=== PATIENT | male | born 1985 | race Caucasian/White ===

== ENCOUNTER 2018-04-15 13:00 | Emergency (ER) | payer OTHER, SELFPAY ==
[2018-04-15 13:09] VITALS: BP 139/92; PULSE 92; RESP 15; TEMP 37; O2SAT 97
--- NOTE | 2018-04-15 13:38 | ED.GENADUL ---
Disposition Clinical Impression: Viral pharyngitis Disposition: HOME Condition: Fair Instructions: Pharyngitis (ED) Additional Instructions: Encourage hydration. Tylenol and/or ibuprofen as needed for discomfort. Use Magic mouthwash as prescribed to help with discomfort. Please follow-up with primary care if symptoms persist. Please see care urgently once again if you develop new or worsening symptoms. Prescriptions: Mag&Al/Sim/Diphenhyd/Lidocaine [First-Mouthwash Blm Suspension] 5 ml MM Q6H PRN PRN #1 btl PRN Reason: Referrals: Nena Frank [Primary Care Provider] - Medical Decision Making - Lab Data POC Strep Test-KAYLIE(Rapid) Start: 04/15/18 13:13 Freq: .Rapid Strep Test Status: Active [place] 04/15/18 13:22 [facility] [place] 04/15/18 13:22 [facility] [place] [id number] Strep test-KAYLIE(Rapid)-POC POC-Strep test-KAYLIE (Rapid) Negative Results reviewed for labs ordered during visit: Yes - Medical Decision Making Patient presents today with chief complaint of sore throat. Patient is concerned that he may have strep throat. Rapid strep was performed by nursing staff noted to be negative. On exam, patient's reflux is noted to be erythematous. There is 2 small white areas. Patient status post tonsillectomy. Uvula is midline. No trismus. Patient appears nontoxic. He is afebrile. Vital signs are within normal limits. Advised that his symptoms are likely viral in nature. Encourage hydration. To help with his discomfort, prescribe first mouthwash. Advised to continue with Tylenol and/or ibuprofen. Encourage hydration. We discussed new/worsening symptoms when to seek care urgently once again. Advise follow-up with primary care in 1 week if symptoms have not improved. All his questions and concerns were addressed and he is in agreement this plan peer History of Present Illness - General Chief complaint: Sorethroat Stated complaint: SORE THROAT Time Seen by Provider: 04/15/18 13:21 Source: patient, RN notes reviewed Mode of arrival: ambulatory Limitations: no limitations - History of Present Illness Initial comments: Patient is a 32-year-old male presenting today with chief complaint of sore throat ?6 days. Patient denies any fevers or chills. He is endorsing some enlarged lymph nodes bilateral aspect of the anterior neck. He denies any difficulty breathing, no recent cough. Denies headache. Denies ear pain. Reports that he has had viral strep in the past. However, it has been several years since then. Patient is status post tonsillectomy. - Related Data Mag&Al/Sim/Diphenhyd/Lidocaine [First-Mouthwash Blm Suspension] 5 ml MM Q6H PRN PRN #1 btl 04/15/18 Allergies Allergy/AdvReac Type Severity Reaction Status Date / Time No Known Drug Allergies Allergy Unverified 12/22/17 09:12 Review of Systems Constitutional: no symptoms reported, see HPI Eyes: denies: eye pain ENT: as per HPI Respiratory: no symptoms reported, see HPI. denies: cough, shortness of breath Cardiovascular: denies: chest pain, palpitations Gastrointestinal: as per HPI. denies: abdominal pain, nausea, vomiting, diarrhea Skin: denies: rash, lesions Neurological: denies: headache General Exam - General Limitations: no limitations General appearance: alert, in no apparent distress - Head Head exam: Present: atraumatic - Eye Eye exam: Present: normal apperance - ENT ENT exam: Present: mucous membranes moist, TM's normal bilaterally, normal external ear exam. Absent: normal exam, normal orophraynx (Oropharynx is erythematous. There is 2 small spots of white exudate. She is noted to be status post tonsillectomy. Uvula is midline. No trismus.) - Neck Neck exam: Present: normal inspection. Absent: tenderness, lymphadenopathy - Respiratory Respiratory exam: Present: normal lung sounds bilaterally. Absent: respiratory distress - Cardiovascular Cardiovascular Exam: Present: regular rate, normal rhythm, normal heart sounds - Neurological Exam Neurological exam: Present: alert, normal gait - Psychiatric Psychiatric exam: Present: normal affect, normal mood - Skin Skin exam: Present: warm, dry, normal color Course Vital Signs - 24 hr 04/15/18 13:09 Temperature 37 C Pulse 92 H Respiratory 15 Rate Blood Pressure 139/92 Pulse Oximetry 97
== END 2018-04-15 13:51 | disposition home or self-care (01) ==
LOC: ER 04-16 10:14
PROVIDERS: Emergency Provider Student in an Organized Health Care Education/Training Program; PCP Nurse Practitioner
DX: J02.9 Acute pharyngitis, unspecified (principal)
CPT/HCPCS: 87880; 99283; 87081

== ENCOUNTER 2018-04-29 07:48 | Emergency (ER) | payer OTHER, SELFPAY ==
[2018-04-29 07:50] VITALS: BP 117/56; PULSE 98; RESP 16; TEMP 37.3; O2SAT 98
--- NOTE | 2018-04-29 08:05 | W.ED.GENAD ---
Discharge Plan Disposition Patient Disposition: HOME Condition: Improving Discharge Details Chief Complaint: RespSymp Clinical Impression: Upper respiratory infection Primary Care Provider: Nena Frank ED Provider: Darien Babcock Home Meds and New Rx's Prescriptions: New amoxicillin-pot clavulanate 875-125 mg tablet 1 tab PO BID 10 Days Qty: 20 RF: 0 Discontinued dyjmtkbtp-cwjmwmpzg-Rl-mag-sim 119 ML mouthwash 5 ml Mucous Membrane Q6H PRN PRNQty: 1 RF: 0 Discharge Instructions Instructions: Upper Respiratory Infection (ED) Additional Instructions: Home to rest today. May use Tylenol and/or ibuprofen as needed for fever or aches. Please take antibiotics as prescribed for 10 days. Small, frequent sips of fluids to maintain hydration. Return to the emergency department for worsening or any other acute concerns Discharge Data Discharge Date/Time-TO BE ENTERED AT DEPARTURE: 04/29/18 09:00 Medical Decision Making MDM Narrative Medical decision making narrative: Healthy 33-year-old male presents with fever, chills and cough over days time. He is otherwise well-appearing and in no acute distress. Differential diagnosis would include bronchitis, viral infection, pneumonia. Patient referred for chest x-ray which I reviewed and question early, developing infiltrate. Do feel he is high risk for developing pneumonia will place him on a course of Augmentin. Discussed return precautions as well as home management with the patient prior to discharge. Stable for home management at this time HPI - General Adult General Date/Time Provider Initiated Documentation: 04/29/18 08:05. Limitations to Documentation: no limitations. History of Present Illness 33 year old M presents to the emergency department with the chief complaint of Cough and fever, described as moderate, Quality is described as aching, and is localized to the chest. Patient reports no radiation. Patient started experiencing this day(s) and it has been constant. No relieving factors improve symptom(s), No exacerbating factors reported . Patient notes fever/chills. HPI Narrative: 33-year-old male with fever, cough, production of sputum over days time. It is in conjunction with upper respiratory illness and his girlfriend for which she is taking antibiotics. Minimal exacerbating or ameliorating factors. He is otherwise well. He has not had chest pain. No change to bowel or bladder habits. Related Data Previous Rx's Medication Instructions Recorded amoxicillin-pot clavulanate 1 tab PO BID 10 Days #20 tab 04/29/18 Allergies Allergy/AdvReac Type Severity Reaction Status Date / Time No Known Drug Allergies Allergy Unverified 04/29/18 07:59 General Stated Complaint: RespSymp ILDA: 3 Review of Systems Review of Systems 8 systems reviewed and otherwise negative PFSH Social History Smoking/Tobacco Use Status: Former Tobacco Use Surgical History Tonsillectomy and adenoidectomy Exam Narrative Exam Narrative: GEN: awake, alert, oriented 3. Pleasant, well groomed, interactive. HEAD: Normocephalic, atraumatic ENT: Mucous membranes moist, oropharynx unremarkable, External ear exam unremarkable EYES: PERRL, EOMI NECK: Full ROM, no SHAILESH, no menigismus CHEST/RESP: Nontender, right mid lung field with rhonchi. No significant wheeze appreciated. CARDIOVASCULAR: RRR, no murmur, rub dede. 2+ Rad pulse bilateral ABDOMEN: Soft, nontender, no mass. +Bowel sounds EXT: Full ROM, no edema, no rash Neuro: Grossly normal neurologic exam, conversant, interactive. Psych: Speech fluent, thoughts congruent, affect normal Course Vital Signs Temperature 37.3 C 04/29/18 07:50 Pulse 98 H 04/29/18 07:50 Respiratory Rate 16 04/29/18 07:50 Blood Pressure 117/56 L 04/29/18 07:50 Pulse Oximetry 98 04/29/18 07:50 Temperature 37.3 C 04/29/18 07:50 Pulse 98 H 04/29/18 07:50 Respiratory Rate 16 04/29/18 07:50 Blood Pressure 117/56 L 04/29/18 07:50 Pulse Oximetry 98 04/29/18 07:50
--- NOTE | 2018-04-29 08:08 | ED.GENADUL_ITS ---
Discharge Plan Disposition Patient Disposition: HOME Condition: Improving Discharge Details Chief Complaint: RespSymp Clinical Impression: Upper respiratory infection Primary Care Provider: Nena Frank ED Provider: Darien Babcock Home Meds and New Rx's Prescriptions: New amoxicillin-pot clavulanate 875-125 mg tablet 1 tab PO BID 10 Days Qty: 20 RF: 0 Discontinued cqkkvhqcr-oavyryewo-Er-mag-sim 119 ML mouthwash 5 ml Mucous Membrane Q6H PRN PRNQty: 1 RF: 0 Discharge Instructions Instructions: Upper Respiratory Infection (ED) Additional Instructions: Home to rest today. May use Tylenol and/or ibuprofen as needed for fever or aches. Please take antibiotics as prescribed for 10 days. Small, frequent sips of fluids to maintain hydration. Return to the emergency department for worsening or any other acute concerns Discharge Data Discharge Date/Time-TO BE ENTERED AT DEPARTURE: 04/29/18 09:00 Medical Decision Making MDM Narrative Medical decision making narrative: Healthy 33-year-old male presents with fever , chills and cough over days time. He is otherwise well-appearing and in no acute distress. Differential diagnosis would include bronchitis, viral infection, pneumonia. Patient referred for chest x-ray which I reviewed and question early, developing infiltrate. Do feel he is high risk for developing pneumonia will place him on a course of Augmentin. Discussed return precautions as well as home management with the patient prior to discharge. Stable for home management at this time HPI - General Adult General Date/Time Provider Initiated Documentation: 04/29/18 08:05 . Limitations to Documentation: no limitations . History of Present Illness 33 year old M presents to the emergency department with the chief complaint of Cough and fever, described as moderate, Quality is described as aching, and is localized to the chest. Patient reports no radiation. Patient started experiencing this day(s) and it has been constant. No relieving factors improve symptom(s), No exacerbating factors reported . Patient notes fever/chills. HPI Narrative: 33-year-old male with fever, cough, production of sputum over days time. It is in conjunction with upper respiratory illness and his girlfriend for which she is taking antibiotics. Minimal exacerbating or ameliorating factors. He is otherwise well. He has not had chest pain. No change to bowel or bladder habits. Related Data Previous Rx's Medication Instructions Recorded amoxicillin-pot clavulanate 1 tab PO BID 10 Days #20 tab 04/29/18 Allergies Allergy/AdvReac Type Severity Reaction Status Date / Time No Known Drug Allergies Allergy Unverified 04/29/18 07:59 General Stated Complaint: RespSymp ILDA: 3 Review of Systems Review of Systems 8 systems reviewed and otherwise negative PFSH Social History Smoking/Tobacco Use Status: Former Tobacco Use Surgical History Tonsillectomy and adenoidectomy Exam Narrative Exam Narrative: GEN: awake, alert, oriented 3. Pleasant, well groomed, interactive. HEAD: Normocephalic, atraumatic ENT: Mucous membranes moist, oropharynx unremarkable, External ear exam unremarkable EYES: PERRL, EOMI NECK: Full ROM, no SHAILESH, no menigismus CHEST/RESP: Nontender, right mid lung field with rhonchi. No significant wheeze appreciated. CARDIOVASCULAR: RRR, no murmur, rub dede. 2+ Rad pulse bilateral ABDOMEN: Soft, nontender, no mass. +Bowel sounds EXT: Full ROM, no edema, no rash Neuro: Grossly normal neurologic exam, conversant, interactive. Psych: Speech fluent, thoughts congruent, affect normal Course Vital Signs Temperature 37.3 C 04/29/18 07:50 Pulse 98 H 04/29/18 07:50 Respiratory Rate 16 04/29/18 07:50 Blood Pressure 117/56 L 04/29/18 07:50 Pulse Oximetry 98 04/29/18 07:50 Temperature 37.3 C 04/29/18 07:50 Pulse 98 H 04/29/18 07:50 Respiratory Rate 16 04/29/18 07:50 Blood Pressure 117/56 L 04/29/18 07:50 Pulse Oximetry 98 04/29/18 07:50
[2018-04-29 08:18] VITALS: TEMP 36.7
--- NOTE | 2018-04-29 08:19 | DI.RAD_ITS ---
SYMPTOM/DIAGNOSIS: COUGH, FEVER PA AND LATERAL CHEST: The lungs are not well inflated but appear clear. The heart size is normal. No infiltrate or effusion is seen. IMPRESSION: Negative chest xray.
[2018-04-29 09:00] VITALS: BP 110/67; PULSE 82; RESP 16; TEMP 36.7; O2SAT 99
--- NOTE | 2018-04-29 09:04 | DI.VRAD_ITS ---
EXAM: XR Chest, 2 Views CLINICAL HISTORY: 33 years old, male; Signs and symptoms; Cough and fever; Patient HX: Cough/fever TECHNIQUE: Frontal and lateral views of the chest. COMPARISON: No relevant prior studies available. FINDINGS: Lungs: Left infrahilar opacification. Pleural space: No discernible pleural effusion or pneumothorax. Heart: The cardiomediastinal silhouette appears within normal limits. Mediastinum: See above. Bones/joints: No acute osseous abnormality is seen. IMPRESSION: Suggestion of left infrahilar infiltrate, which may represent pneumonia in the appropriate clinical context. Dictated and Authenticated by: Caprice Stout MD. Ordering:BAILEY LAUREANO MD
== END 2018-04-29 09:00 | disposition home or self-care (01) ==
LOC: ER 09:04
PROVIDERS: Emergency Provider Emergency Medicine; PCP Nurse Practitioner
DX: J06.9 Acute upper respiratory infection, unspecified (principal)
CPT/HCPCS: 99284; 71046

== ENCOUNTER 2018-05-01 14:51 | Observation (INO) | payer OTHER, SELFPAY ==
[2018-05-01] VITALS (8 sets, daily range): BP systolic 106–161; BP diastolic 65–81; PULSE 107–128; RESP 1–30; TEMP 37.7–39.6; O2SAT 94–98
--- NOTE | 2018-05-01 15:56 | W.ED.GENAD ---
Discharge Plan Disposition Condition: Good Discharge Details Chief Complaint: SOB Reason For Visit: PNEUMONIA Admit Date/Time: 05/01/18 20:54 Admit Provider: Tomas Kathleen Attending Provider: Tomas Kathleen Primary Care Provider: Nena Frank ED Provider: Melinda Koch Discharge Instructions Activity:: Activity as Tolerated Equipment/Supplies:: No Equipment Needed Discharge Orders Discharge Orders: Discharge Order (Routine); Ordered 05/03/18 Ordered By: Brianna Rodriguez Discharge Data Discharge Date/Time-TO BE ENTERED AT DEPARTURE: 05/01/18 21:33 Medical Decision Making MDM Narrative Medical decision making narrative: Alexis Ordoñez is a 33-year-old man with history of sleep apnea presenting to the emergency department with worsening shortness of breath and cough after being started on Augmentin for pneumonia 2 days ago. On exam patient is tachypneic and not quite able to converse in full sentences secondary to shortness of breath. He is also tachycardic. Lungs are clear to auscultation. Concern for worsening pneumonia with possible reactive airway disease component, doubt PE. Patient is mildly tachypneic and tachycardic but appears well and nontoxic, doubt sepsis. Exam/history not consistent with ACS. Plan for EKG, chest x-ray, screening labs, DuoNeb, telemetry, IV fluid hydration. Will monitor and reassess. Pt reports feeling improved after duoneb and fluids, but continues to speak in short sentences. Plan for rpt duoneb and continued IVF hydration. CXR shows b/l PNA, will send blood cxs and treat with PO levaquin, possible d/c to home if improvement in SOB and tachycardia as overall low PNA severity index. Pt reassessed. Now tachycardic >125 despite 2L IVF. Significant time has passed since duoneb, doubt tachycardia 2/2 albuterol at this time. Pt continues to be SOB with minimal exertion. Plan for admission. Clinical Impression: PNA Disposition: [facility] inpatient Imaging Data Radiologic Study: Attestation: I personally reviewed and interpreted this imaging study as follows: Radiologist's impression: PE CHEST CT: CT angiography was performed with multi slice acquisition and multi planar and 3D reconstruction. CT scan of the chest was performed according to the pulmonary embolus protocol. Comparison chest xray is from the same day. The thoracic aorta is normal in caliber. No dissection or aneurysm is seen. No evidence of a pulmonary embolus is present. The heart is normal in size. No significant pericardial effusion is seen. No findings to suggest right ventricular dysfunction are present. Mildly enlarged lymph nodes are seen in the mediastinum which are likely reactive. No significant axillary adenopathy is present. No pleural effusion or pneumothorax is identified. There are air space opacities seen. The findings are most marked in the left lower lobe however infiltrates are noted in the left lingula, right upper lobe and right lower lobe. The tracheobronchial tree is unremarkable. The liver appears enlarged with diffuse decreased attenuation consistent with hepatic steatosis. Degenerative changes are seen in the spine. Note is made of bilateral gynecomastia. IMPRESSION: No evidence of a pulmonary embolus, thoracic aortic dissection or aneurysm. Bilateral pulmonary infiltrates consistent with a pneumonia. Hepatomegaly with hepatic steatosis. PA AND LATERAL CHEST: Comparison is made with 04/29/18. There is an infiltrate seen in the left lung base and developing infiltrates seen in the right upper lobe. These findings have progressed since 04/29/18. No gross effusions or pneumothoraces are identified. Heart size and pulmonary vasculature are within normal limits. Degenerative changes are seen in the spine. IMPRESSION: Worsening bilateral pulmonary infiltrates consistent with pneumonia. Lab Data Lab results reviewed: Yes I reviewed the patient's lab results. ECG Data Attestation: I personally reviewed and interpreted this ECG (s) as follows: Interpretation: EKG shows sinus tachycardia at 102 with normal axis, T-wave flattening V1 V2, no STEMI, nondiagnostic HPI - General Adult General Mode of arrival: ambulatory. Date/Time Provider Initiated Documentation: 05/01/18 15:55. Limitations to Documentation: no limitations. Information obtained by: patient, RN notes reviewed and old records reviewed. HPI Narrative: Alexis Ordoñez is a 33-year-old man with history of sleep apnea and no other medical problems presenting to the emergency department with cough and shortness of breath. Patient reports that he was seen on Wednesday for cough and mild shortness of breath. At that time he had a normal chest x-ray, but he was started on Augmentin for possible occult pneumonia. Patient reports that he has been taking his Augmentin as prescribed for the past 2 days, but feels that his shortness of breath and cough have been getting worse. He denies any pain. Denies fevers, vomiting, diarrhea, rash, lightheadedness, weakness. Patient reports that shortness of breath is worse with exertion. Has not had similar symptoms in the past. He denies travel in the past few months, denies other recent illnesses. He reports normal appetite. Related Data Home Medications Medication Instructions Recorded Confirmed ibuprofen 600 mg PO TID 05/01/18 05/01/18 albuterol sulfate 2 puff IH Q6H PRN #8 gm 05/03/18 guaifenesin [Mucinex] 600 mg PO BID #10 tab 05/03/18 levofloxacin 750 mg PO DAILY@1600 #5 tab 05/03/18 Previous Rx's Medication Instructions Recorded albuterol sulfate 2 puff IH Q6H PRN #8 gm 05/03/18 guaifenesin [Mucinex] 600 mg PO BID #10 tab 05/03/18 levofloxacin 750 mg PO DAILY@1600 #5 tab 05/03/18 Allergies Allergy/AdvReac Type Severity Reaction Status Date / Time No Known Drug Allergies Allergy Unverified 05/01/18 15:04 General Stated Complaint: SOB ILDA: 3 Review of Systems Review of Systems Constitutional: denies fevers Eyes: denies eye pain ENT: denies facial pain, dental pain, sore throat Cardiovascular: denies chest pain, edema Respiratory: reports SOB, cough GI: denies abdominal pain, vomiting, diarrhea : denies flank pain MSK: denies back pain, neck pain, arthralgias, myalgias Skin: denies rash Neuro: denies headaches, lightheadedness, weakness Exam Narrative Exam Narrative: Constitutional: well and and-[id number], pleasant HENT: head atraumatic, normocephalic normal inspection, mucous membranes moist Eyes: conjunctiva normal, sclera normal, pupils 3mm b/l Neck: no stridor, normal ROM, trachea midline Chest: normal inspection Resp: increased WOB, speaking in short sentences, b/l wheeze on ausculation without rales or rhonchi Cardio: tachycardia, normal rhythm, no murmur appreciated GI: abdomen soft, non-tender, non-distended Back: normal inspection, no rash Skin: warm, dry, normal color, no rash Neuro: alert, not altered, grossly non-focal, normal tone Ext: no edema Psych: normal mood, normal affect, normal behavior Course Vital Signs Temperature 37.7 C H 05/01/18 14:59 Pulse 111 H 05/01/18 14:59 Respiratory Rate 30 H 05/01/18 14:59 Pulse Oximetry 98 05/01/18 14:59 Temperature 37.7 C H 05/01/18 14:59 Pulse 108 H 05/01/18 15:26 Respiratory Rate 28 H 05/01/18 15:26 Blood Pressure 161/81 H 05/01/18 15:26 Pulse Oximetry 98 05/01/18 15:26
--- NOTE | 2018-05-01 16:02 | DI.COMBO_ITS ---
SYMPTOM/DIAGNOSIS: SOB, COUGH, PNEUMONIA, ? PE PE CHEST CT: CT angiography was performed with multi slice acquisition and multi planar and 3D reconstruction. CT scan of the chest was performed according to the pulmonary embolus protocol. Comparison chest xray is from the same day. The thoracic aorta is normal in caliber. No dissection or aneurysm is seen. No evidence of a pulmonary embolus is present. The heart is normal in size. No significant pericardial effusion is seen. No findings to suggest right ventricular dysfunction are present. Mildly enlarged lymph nodes are seen in the mediastinum which are likely reactive. No significant axillary adenopathy is present. No pleural effusion or pneumothorax is identified. There are air space opacities seen. The findings are most marked in the left lower lobe however infiltrates are noted in the left lingula, right upper lobe and right lower lobe. The tracheobronchial tree is unremarkable. The liver appears enlarged with diffuse decreased attenuation consistent with hepatic steatosis. Degenerative changes are seen in the spine. Note is made of bilateral gynecomastia. IMPRESSION: No evidence of a pulmonary embolus, thoracic aortic dissection or aneurysm. Bilateral pulmonary infiltrates consistent with a pneumonia. Hepatomegaly with hepatic steatosis. PA AND LATERAL CHEST: Comparison is made with 04/29/18. There is an infiltrate seen in the left lung base and developing infiltrates seen in the right upper lobe. These findings have progressed since 04/29/18. No gross effusions or pneumothoraces are identified. Heart size and pulmonary vasculature are within normal limits. Degenerative changes are seen in the spine. IMPRESSION: Worsening bilateral pulmonary infiltrates consistent with pneumonia.
[2018-05-01] MEDS: Albuterol/Ipratropium 3 ML UPD VIAL UPD ×2 (16:15→19:27)
[2018-05-01] MEDS: Normal Saline 1,000 ML 1000 ML IV ×2 (16:25→20:20)
[2018-05-01 16:32] LABS: Absolute Basophil Count 0.02 k/cumm (0.0-0.2); Absolute Eosinophil Count 0.26 k/cumm (0.0-0.7); Absolute Lymphocyte Count 1.15 k/cumm (1.2-3.4); Absolute Monocyte Count 0.74 k/cumm (0.11-0.7); Absolute Neutrophil Count 6.94 k/cumm (1.2-6.7); Basophils % 0.2; Eosinophils % 2.8; HCT 41.6 % (40.0-50.0); Immature Grans % 1.1; Lymphocytes % 12.5; Mean Corp. HGB Concentration 33.7 g/dL (32.0-36.0); Mean Corpuscular Hemoglobin 28.4 pg (27.0-33.0); Mean Corpuscular Volume 84.4 fL (80-95); Mean Platelet Volume 9.5 fL (8.0-11.0); Neutrophils % 75.4; Platelet Count 169 x1000/uL (130-400); RBC 4.93 m/cumm (4.50-6.00); RBC Distribution Width 14.7 % (11.8-14.1); White Blood Cell Count 9.21 k/cumm (4.4-10.8)
[2018-05-01 16:41] LABS: ALT 63 U/L (12-78); AST 30 U/L (15-37); Alkaline Phosphatase 64 U/L (46-116); Anion Gap 7.4 mmol/L (3-11); BUN 10 mg/dL (7-18); Bilirubin, Total 1.2 mg/dL (0.2-1.0); CO2 29.6 mmol/L (21.0-32.0); CREATININE 0.98 mg/dL (0.70-1.30); Calcium 8.4 mg/dL (8.5-10.1); Chloride 102 mmol/L (98-107); Glucose 112 mg/dL (70-100); Potassium 4.2 mmol/L (3.5-5.1); Sodium 139 mmol/L (136-145); Total Protein 7.5 g/dL (6.4-8.2)
[2018-05-01 17:02] LABS: D-Dimer 1721 ng/mlFEU (<500)
--- NOTE | 2018-05-01 17:26 | DI.VRAD_ITS ---
EXAM: XR Chest, 2 Views CLINICAL HISTORY: 33 years old, male; Signs and symptoms; Cough and shortness of breath; Patient HX: SOB, cough TECHNIQUE: Frontal and lateral views of the chest. COMPARISON: CR - XR CHEST 2V PA LATERAL 04/29/2018 8:12 AM FINDINGS: Lungs: New left lower lobe opacity with obscuration of the left posterior medial diaphragm consistent with left lower lobe pneumonia. Followup chest radiograph following appropriate medical management to confirm resolution is recommended. Pleural space: Unremarkable. No pneumothorax. Heart: Unremarkable. No cardiomegaly. Mediastinum: Unremarkable. Bones/joints: Unremarkable. IMPRESSION: Left lower lobe pneumonia. Followup chest radiograph to confirm resolution is recommended. Dictated and Authenticated by: Daniel Lim MD. Ordering:ANTONY GENTILE MD
[2018-05-01] MEDS: Omnipaque 350 MG/ML 100 ML BTL IJ (18:09)
--- NOTE | 2018-05-01 18:43 | DI.VRAD_ITS ---
EXAM: CT Angiography Chest With Intravenous Contrast EXAM DATE/TIME: 05/01/2018 5:38 PM CLINICAL HISTORY: 33 years old, male; Signs and symptoms; Shortness of breath; Patient HX: Sob/pna on xray worse on abx/ R/O pe TECHNIQUE: Axial computed tomographic angiography images of the chest with intravenous contrast using CT angiography protocol. All CT scans at this facility use at least one of these dose optimization techniques: automated exposure control; mA and/or kV adjustment per patient size (includes targeted exams where dose is matched to clinical indication); or iterative reconstruction. Coronal and sagittal reformatted images were created and reviewed. MIP reconstructed images were created and reviewed. CONTRAST: 100 ml of omni 350 administered intravenously. COMPARISON: CR - XR CHEST 2V PA LATERAL 05/01/2018 5:04 PM FINDINGS: Pulmonary arteries: Normal. No pulmonary emboli. Aorta: Normal. No aortic aneurysm. No aortic dissection. Lungs: Airspace opacity is identified in the central right upper lobe consistent with pneumonic consolidation. Additionally, as noted on chest radiograph evaluation performed earlier; there is pneumonic consolidation in the posterior left lower lobe as well which is much more extensive than that in the right upper lobe. Pleural space: Normal. No pneumothorax. No pleural effusion. Heart: Normal. No cardiomegaly. No pericardial effusion. Bones/joints: Marginal osteophytic spurring is present throughout the thoracic vertebrae. Soft tissues: There is mild bilateral gynecomastia noted. Lymph nodes: Unremarkable. No enlarged lymph nodes. Liver: There is hepatomegaly identified. The liver measured approximately 20.8 cm in the midclavicular line. There is associated marked diffuse hepatic steatosis present. IMPRESSION: 1. No identification of PE. 2. Dense posterior left lower lobe pneumonic consolidation and small right upper lobe pneumonic consolidation is identified. Dictated and Authenticated by: Alli Ag MD. Ordering:ANTONY GENTILE MD
[2018-05-01] MEDS: LEVOFLOXACIN 500 MG, LEVOFLOXACIN 250 MG 750 MG PO (20:19)
[2018-05-01 21:11] LABS: BE (Venous) 1.6 mmol/L (-3-3); HCO3 (Venous) 26 mmol/L (22-28); O2 Sat (Venous) 68 % (70-80); TCO2 (Venous) 24 mmol/L (22-29); pCO2 (Venous) 42 mm/Hg (34-47); pH (Venous) 7.41 (7.32-7.43); pO2 (Venous) 34 mm/Hg (28-44)
--- NOTE | 2018-05-01 21:32 | W.PM.HP.N ---
Date of service: 05/01/18 Time of Service: 21:32 Assessment and Plan (1) Pneumonia: Current visit: Yes Status: Acute Pneumonia diagnosed clinically and radiographically - evidence of multilobar pneumonia with consolidations in the LLL and RUL. Technically the patient has been on 2 days of oral Augmentin, with outpatient antibiotic failure. Will initiate on IV Levofloxacin, check Blood and Sputum Cultures, and monitor very closely with low threshold for broadening coverage if patient fails to improve. Continue IVFs, Tylenol for fever, nebulizer therapy and antitussive as needed. (2) DEVAN (obstructive sleep apnea): Current visit: Yes Status: Chronic Continue CPAP. (3) Obesity: Current visit: Yes Status: Chronic (4) DVT prophylaxis: Current visit: Yes Status: Acute SC Lovenox. History of Present Illness Chief Complaint: Fever, Cough Narrative: Very Pleasant 33 year old man with past medical history significant for Obesity and DEVAN, presents to [facility] emergency department with complaints of fever and cough. Mr. Ordoñez reports onset of fatigue approximately one week ago, followed by subjective fever, malaise, and dyspnea 5 days ago. He then had onset of a cough, described as unproductive, 2 days ago prompting a visit to the emergency room. His chest x-ray was negative, and the patient was started on Augmentin and discharged. Despite antibiotic use the patient continued to have worsening fever, dyspnea, cough, and onset of nausea and vomiting. Work-up in the emergency room was significant for appearance of LLL and RUL consolidations by CT. The patient's WBC was normal, as was his lactate and kidney function. His pulse ox was well within normal limits, and his blood pressure was normotensive. The patient was referred for admission due to ongoing sinus tachycardia despite fluid resuscitation. Review of Systems Review of Systems All systems reviewed & are unremarkable except as noted in HPI and below PFSH Family History Father Hepatocellular carcinoma RODRIGUEZ (nonalcoholic steatohepatitis) Liver transplant recipient Mother No problems noted. Sister Asthma Medical History Obesity (Chronic) DEVAN (obstructive sleep apnea) (Chronic) Social History Smoking/Tobacco Use Status: Former Tobacco Use additional social history: Patient is single, no children. 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 Remote and insignificant tobacco history. Rare alcohol use. Denies drugs. Surgical History Tonsillectomy and adenoidectomy Meds Home Medications Medication Instructions Recorded Confirmed Type ibuprofen 600 mg PO TID 05/01/18 05/01/18 History Allergies Allergy/AdvReac Type Severity Reaction Status Date / Time No Known Drug Allergies Allergy Unverified 05/01/18 15:04 Exam Const General: cooperative and ill appearing Nutritional Appearance: obese Orientation: alert, awake and oriented x3 Neck Neck: supple Resp Effort & Inspection: able to speak in complete sentences Auscultation: no crackles, diminished lung sounds (Slightly diminished in the LLL and RUL), no rales, no rhonchi and no wheezes Cardio Rate: tachycardic Heart Sounds: S1 normal, S2 normal, no gallops, no murmurs and no rubs GI Palpation: soft, not firm, no guarding and nontender Auscultation: normal bowel sounds Extrem General: normal to inspection and no edema Psych Appearance: grossly normal Mental Status: mental status grossly normal Affect: normal affect Attitude: cooperative Results Imaging Chest x-ray: report reviewed CT scan - chest: report reviewed Imaging Studies: Exam(s) PA AND LATERAL CHEST: The lungs are not well inflated but appear clear. The heart size is normal. No infiltrate or effusion is seen. IMPRESSION: Negative chest xray. EXAM: XR Chest, 2 Views COMPARISON: No relevant prior studies available. FINDINGS: Lungs: Left infrahilar opacification. Pleural space: No discernible pleural effusion or pneumothorax. Heart: The cardiomediastinal silhouette appears within normal limits. Mediastinum: See above. Bones/joints: No acute osseous abnormality is seen. IMPRESSION: Suggestion of left infrahilar infiltrate, which may represent pneumonia in the appropriate clinical context. Labs : 05/01/18 16:20 05/01/18 16:20 Laboratory Results - last 24 hr 05/01/18 05/01/18 05/01/18 16:20 16:20 16:20 WBC 9.21 RBC 4.93 Hgb 14.0 Hct 41.6 MCV 84.4 MCH 28.4 MCHC 33.7 RDW 14.7 H Plt Count 169 MPV 9.5 Immature Gran % 1.1 Neutrophils % 75.4 Lymphocytes % 12.5 Monocytes % 8.0 Eosinophils % 2.8 Basophils % 0.2 Absolute Neutrophils 6.94 H Absolute Lymphocytes 1.15 L Absolute Monocytes 0.74 H Absolute Eosinophils 0.26 Absolute Basophils 0.02 D-Dimer 1721 H VBG pH VBG pCO2 VBG pO2 VBG HCO3 VBG Total CO2 VBG O2 Saturation VBG Base Excess Sodium 139 Potassium 4.2 Chloride 102 Carbon Dioxide 29.6 Anion Gap 7.4 BUN 10 Creatinine 0.98 Estimated GFR/1.73 m2 >= 60.00 Glucose 112 H Lactate Calcium 8.4 L Total Bilirubin 1.2 H AST 30 ALT 63 Alkaline Phosphatase 64 Total Protein 7.5 Albumin 3.0 L 05/01/18 05/01/18 21:03 21:03 WBC RBC Hgb Hct MCV MCH MCHC RDW Plt Count MPV Immature Gran % Neutrophils % Lymphocytes % Monocytes % Eosinophils % Basophils % Absolute Neutrophils Absolute Lymphocytes Absolute Monocytes Absolute Eosinophils Absolute Basophils D-Dimer VBG pH 7.41 VBG pCO2 42 VBG pO2 34 VBG HCO3 26 VBG Total CO2 24 VBG O2 Saturation 68 L VBG Base Excess 1.6 Sodium Potassium Chloride Carbon Dioxide Anion Gap BUN Creatinine Estimated GFR/1.73 m2 Glucose Lactate 1.0 Calcium Total Bilirubin AST ALT Alkaline Phosphatase Total Protein Albumin
--- NOTE | 2018-05-01 21:35 | HPE_ITS ---
Date of service: 05/01/18 Time of Service: 21:32 Assessment and Plan (1) Pneumonia: Current visit: Yes Status: Acute Pneumonia diagnosed clinically and radiographically - evidence of multilobar pneumonia with consolidations in the LLL and RUL. Technically the patient has been on 2 days of oral Augmentin, with outpatient antibiotic failure. Will initiate on IV Levofloxacin, check Blood and Sputum Cultures, and monitor very closely with low threshold for broadening coverage if patient fails to improve. Continue IVFs, Tylenol for fever, nebulizer therapy and antitussive as needed. (2) DEVAN (obstructive sleep apnea): Current visit: Yes Status: Chronic Continue CPAP. (3) Obesity: Current visit: Yes Status: Chronic (4) DVT prophylaxis: Current visit: Yes Status: Acute SC Lovenox. History of Present Illness Chief Complaint: Fever, Cough Narrative: Very Pleasant 33 year old man with past medical history significant for Obesity and DEVAN, presents to [facility] emergency department with complaints of fever and cough. Mr. Ordoñez reports onset of fatigue approximately one week ago, followed by subjective fever, malaise, and dyspnea 5 days ago. He then had onset of a cough , described as unproductive, 2 days ago prompting a visit to the emergency room. His chest x-ray was negative, and the patient was started on Augmentin and discharged. Despite antibiotic use the patient continued to have worsening fever, dyspnea, cough, and onset of nausea and vomiting. Work-up in the emergency room was significant for appearance of LLL and RUL consolidations by CT. The patient's WBC was normal, as was his lactate and kidney function. His pulse ox was well within normal limits, and his blood pressure was normotensive. The patient was referred for admission due to ongoing sinus tachycardia despite fluid resuscitation. Review of Systems Review of Systems All systems reviewed & are unremarkable except as noted in HPI and below PFSH Family History Father Hepatocellular carcinoma RODRIGUEZ (nonalcoholic steatohepatitis) Liver transplant recipient Mother No problems noted. Sister Asthma Medical History Obesity (Chronic) DEVAN (obstructive sleep apnea) (Chronic) Social History Smoking/Tobacco Use Status: Former Tobacco Use additional social history: Patient is single, no children. 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 Remote and insignificant tobacco history. Rare alcohol use. Denies drugs. Surgical History Tonsillectomy and adenoidectomy Meds Home Medications Medication Instructions Recorded Confirmed Type ibuprofen 600 mg PO TID 05/01/18 05/01/18 History Allergies Allergy/AdvReac Type Severity Reaction Status Date / Time No Known Drug Allergies Allergy Unverified 05/01/18 15:04 Exam Const General: cooperative and ill appearing Nutritional Appearance: obese Orientation: alert, awake and oriented x3 Neck Neck: supple Resp Effort & Inspection: able to speak in complete sentences Auscultation: no crackles, diminished lung sounds (Slightly diminished in the LLL and RUL), no rales, no rhonchi and no wheezes Cardio Rate: tachycardic Heart Sounds: S1 normal, S2 normal, no gallops, no murmurs and no rubs GI Palpation: soft, not firm, no guarding and nontender Auscultation: normal bowel sounds Extrem General: normal to inspection and no edema Psych Appearance: grossly normal Mental Status: mental status grossly normal Affect: normal affect Attitude: cooperative Results Imaging Chest x-ray: report reviewed CT scan - chest: report reviewed Imaging Studies: Exam(s) PA AND LATERAL CHEST: The lungs are not well inflated but appear clear. The heart size is normal. No infiltrate or effusion is seen. IMPRESSION: Negative chest xray. EXAM: XR Chest, 2 Views COMPARISON: No relevant prior studies available. FINDINGS: Lungs: Left infrahilar opacification. Pleural space: No discernible pleural effusion or pneumothorax. Heart: The cardiomediastinal silhouette appears within normal limits. Mediastinum: See above. Bones/joints: No acute osseous abnormality is seen. IMPRESSION: Suggestion of left infrahilar infiltrate, which may represent pneumonia in the appropriate clinical context. Labs : 05/01/18 16:20 05/01/18 16:20 Laboratory Results - last 24 hr 05/01/18 05/01/18 05/01/18 16:20 16:20 16:20 WBC 9.21 RBC 4.93 Hgb 14.0 Hct 41.6 MCV 84.4 MCH 28.4 MCHC 33.7 RDW 14.7 H Plt Count 169 MPV 9.5 Immature Gran % 1.1 Neutrophils % 75.4 Lymphocytes % 12.5 Monocytes % 8.0 Eosinophils % 2.8 Basophils % 0.2 Absolute Neutrophils 6.94 H Absolute Lymphocytes 1.15 L Absolute Monocytes 0.74 H Absolute Eosinophils 0.26 Absolute Basophils 0.02 D-Dimer 1721 H VBG pH VBG pCO2 VBG pO2 VBG HCO3 VBG Total CO2 VBG O2 Saturation VBG Base Excess Sodium 139 Potassium 4.2 Chloride 102 Carbon Dioxide 29.6 Anion Gap 7.4 BUN 10 Creatinine 0.98 Estimated GFR/1.73 m2 >= 60.00 Glucose 112 H Lactate Calcium 8.4 L Total Bilirubin 1.2 H AST 30 ALT 63 Alkaline Phosphatase 64 Total Protein 7.5 Albumin 3.0 L 05/01/18 05/01/18 21:03 21:03 WBC RBC Hgb Hct MCV MCH MCHC RDW Plt Count MPV Immature Gran % Neutrophils % Lymphocytes % Monocytes % Eosinophils % Basophils % Absolute Neutrophils Absolute Lymphocytes Absolute Monocytes Absolute Eosinophils Absolute Basophils D-Dimer VBG pH 7.41 VBG pCO2 42 VBG pO2 34 VBG HCO3 26 VBG Total CO2 24 VBG O2 Saturation 68 L VBG Base Excess 1.6 Sodium Potassium Chloride Carbon Dioxide Anion Gap BUN Creatinine Estimated GFR/1.73 m2 Glucose Lactate 1.0 Calcium Total Bilirubin AST ALT Alkaline Phosphatase Total Protein Albumin
[2018-05-01] MEDS: Normal Saline Flush 10 ML SYR IVP (22:36)
[2018-05-01] MEDS: Normal Saline 1,000 ML 150 ML IV (22:36)
[2018-05-01] MEDS: Acetaminophen 325 MG TAB 650 MG PO (22:36)
[2018-05-02] VITALS (10 sets, daily range): BP systolic 118–139; BP diastolic 62–85; PULSE 90–109; RESP 20; TEMP 36.2–38.7; O2SAT 96–98
[2018-05-02] MEDS: Acetaminophen 325 MG TAB 650 MG PO (04:10)
[2018-05-02] MEDS: Normal Saline 1,000 ML 150 ML IV ×3 (04:16→19:02)
[2018-05-02 07:01] LABS: Abs Immature Grans 0.08 k/cumm (0.0-0.09); Absolute Basophil Count 0.03 k/cumm (0.0-0.2); Absolute Lymphocyte Count 1.26 k/cumm (1.2-3.4); Absolute Monocyte Count 0.83 k/cumm (0.11-0.7); Absolute Neutrophil Count 7.46 k/cumm (1.2-6.7); Basophils % 0.3; HGB 12.9 g/dL (13.5-17.5); Immature Grans % 0.8; Lymphocytes % 12.8; Mean Corp. HGB Concentration 33.1 g/dL (32.0-36.0); Mean Corpuscular Hemoglobin 28.4 pg (27.0-33.0); Mean Corpuscular Volume 85.7 fL (80-95); Mean Platelet Volume 9.6 fL (8.0-11.0); Monocytes % 8.4; Neutrophils % 75.7; Platelet Count 181 x1000/uL (130-400); RBC 4.55 m/cumm (4.50-6.00); RBC Distribution Width 14.9 % (11.8-14.1); White Blood Cell Count 9.86 k/cumm (4.4-10.8)
[2018-05-02 07:08] LABS: BUN 10 mg/dL (7-18); CREATININE 0.97 mg/dL (0.70-1.30); Calcium 8.1 mg/dL (8.5-10.1); Chloride 104 mmol/L (98-107); Glucose 96 mg/dL (70-100); Potassium 4.1 mmol/L (3.5-5.1); Sodium 139 mmol/L (136-145)
[2018-05-02] MEDS: Benzonatate 100 MG CAP PO ×3 (07:46→19:14)
[2018-05-02] MEDS: guaiFENesin 600 MG TABCR PO ×2 (07:46→19:13)
[2018-05-02] MEDS: Ibuprofen 600 MG TAB PO ×3 (07:46→19:13)
--- NOTE | 2018-05-02 07:51 | PDOC.CMIN ---
- If Service Date Differs Date of service: 05/02/18 Time of Service: 07:51 Care Management Initial Assess REASON FOR HOSPITALIZATION:: Pneumonia PAST MEDICAL HISTORY/PAST SURGICAL HISTORY:: Obesity, DEVAN, Tonsillectomy, Adenoidectomy PREVIOUS FUNCTIONAL STATUS/SOCIAL/FAMILY SUPPORTS:: Alexis resides alone in [place], he states that he has family locally whom are supportive. 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 Alexis is independent at baseline, he drives, and manages [employer]'s CURRENT FUNCTIONAL STATUS:: Currently Alexis is sitting up in his chair when this check writer visits. He just recently received Reiki. Alexis is pleasant and open to discussion this morning. ADVANCE DIRECTIVES:: None on file Has patient been provided with information about the portal?: Yes Did the patient sign up for the portal?: Yes CODE STATUS:: Full Code INSURANCE COVERAGE / FINANCIAL ISSUES:: [employer] CURRENT HOME/COMMUNITY SERVICES/EQUIPMENT:: Currently Alexis has no services in the community. He has a CPAP which is serviced through [facility] PRIMARY CARE PHYSICIAN:: Nena Frank POTENTIAL DISCHARGE NEEDS:: F/U appointment with PCP PATIENT/FAMILY EDUCATION NEEDS:: Review DC instructions, any limitations, and ongoing DC planning discussion. Review Ask Me Three ANTICIPATED BARRIERS TO DISCHARGE:: None identified at this time. TRANSPORTATION:: Alexis's vehicle is at [facility] - will transport self home. PLAN:: Alexis will return home with no anticipated services once medically cleared. He will F/U with PCP and plan of care as prescribed. Alexis will transport self home when ready.
--- NOTE | 2018-05-02 08:03 | INITIAL_ITS ---
- If Service Date Differs Date of service: 05/02/18 Time of Service: 07:51 Care Management Initial Assess REASON FOR HOSPITALIZATION:: Pneumonia PAST MEDICAL HISTORY/PAST SURGICAL HISTORY:: Obesity, DEVAN, Tonsillectomy, Adenoidectomy PREVIOUS FUNCTIONAL STATUS/SOCIAL/FAMILY SUPPORTS:: Alexis resides alone in [place], he states that he has family locally whom are supportive. 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 He just recently received Reiki. Alexis is pleasant and open to discussion this morning. ADVANCE DIRECTIVES:: None on file Has patient been provided with information about the portal?: Yes Did the patient sign up for the portal?: Yes CODE STATUS:: Full Code INSURANCE COVERAGE / FINANCIAL ISSUES:: [employer] CURRENT HOME/COMMUNITY SERVICES/EQUIPMENT:: Currently Alexis has no services in the community. He has a CPAP which is serviced through [facility] PRIMARY CARE PHYSICIAN:: Nena Frank POTENTIAL DISCHARGE NEEDS:: F/U appointment with PCP PATIENT/FAMILY EDUCATION NEEDS:: Review DC instructions, any limitations, and ongoing DC planning discussion. Review Ask Me Three ANTICIPATED BARRIERS TO DISCHARGE:: None identified at this time. TRANSPORTATION:: Alexis's vehicle is at [facility] - will transport self home. PLAN:: Alexis will return home with no anticipated services once medically cleared. He will F/U with PCP and plan of care as prescribed. Alexis will transport self home when ready.
--- NOTE | 2018-05-02 08:31 | ED.GENADUL_ITS ---
Discharge Plan Disposition Condition: Good Discharge Details Chief Complaint: SOB Reason For Visit: PNEUMONIA Admit Date/Time: 05/01/18 20:54 Admit Provider: Tomas Kathleen Attending Provider: Tomas Kathleen Primary Care Provider: Nena Frank ED Provider: Melinda Koch Discharge Instructions Activity:: Activity as Tolerated Equipment/Supplies:: No Equipment Needed Discharge Orders Discharge Orders: Discharge Order (Routine); Ordered 05/03/18 Ordered By: Brianna Rodriguez Discharge Data Discharge Date/Time-TO BE ENTERED AT DEPARTURE: 05/01/18 21:33 Medical Decision Making MDM Narrative Medical decision making narrative: Alexis Ordoñez is a 33-year-old man with history of sleep apnea presenting to the emergency department with worsening shortness of breath and cough after being started on Augmentin for pneumonia 2 days ago. On exam patient is tachypneic and not quite able to converse in full sentences secondary to shortness of breath. He is also tachycardic. Lungs are clear to auscultation. Concern for worsening pneumonia with possible reactive airway disease component, doubt PE. Patient is mildly tachypneic and tachycardic but appears well and nontoxic, doubt sepsis. Exam/history not consistent with ACS. Plan for EKG, chest x-ray, screening labs, DuoNeb, telemetry, IV fluid hydration. Will monitor and reassess. Pt reports feeling improved after duoneb and fluids, but continues to speak in short sentences. Plan for rpt duoneb and continued IVF hydration. CXR shows b/l PNA, will send blood cxs and treat with PO levaquin, possible d/c to home if improvement in SOB and tachycardia as overall low PNA severity index. Pt reassessed. Now tachycardic >125 despite 2L IVF. Significant time has passed since duoneb, doubt tachycardia 2/2 albuterol at this time. Pt continues to be SOB with minimal exertion. Plan for admission. Clinical Impression: PNA Disposition: [facility] inpatient Imaging Data Radiologic Study: Attestation: I personally reviewed and interpreted this imaging study as follows: Radiologist's impression: PE CHEST CT: CT angiography was performed with multi slice acquisition and multi planar and 3D reconstruction. CT scan of the chest was performed according to the pulmonary embolus protocol. Comparison chest xray is from the same day. The thoracic aorta is normal in caliber. No dissection or aneurysm is seen. No evidence of a pulmonary embolus is present. The heart is normal in size. No significant pericardial effusion is seen. No findings to suggest right ventricular dysfunction are present. Mildly enlarged lymph nodes are seen in the mediastinum which are likely reactive. No significant axillary adenopathy is present. No pleural effusion or pneumothorax is identified. There are air space opacities seen. The findings are most marked in the left lower lobe however infiltrates are noted in the left lingula, right upper lobe and right lower lobe. The tracheobronchial tree is unremarkable. The liver appears enlarged with diffuse decreased attenuation consistent with hepatic steatosis. Degenerative changes are seen in the spine. Note is made of bilateral gynecomastia. IMPRESSION: No evidence of a pulmonary embolus, thoracic aortic dissection or aneurysm. Bilateral pulmonary infiltrates consistent with a pneumonia. Hepatomegaly with hepatic steatosis. PA AND LATERAL CHEST: Comparison is made with 04/29/18. There is an infiltrate seen in the left lung base and developing infiltrates seen in the right upper lobe. These findings have progressed since 04/29/18. No gross effusions or pneumothoraces are identified. Heart size and pulmonary vasculature are within normal limits. Degenerative changes are seen in the spine. IMPRESSION: Worsening bilateral pulmonary infiltrates consistent with pneumonia. Lab Data Lab results reviewed: Yes I reviewed the patient's lab results. ECG Data Attestation: I personally reviewed and interpreted this ECG (s) as follows: Interpretation: EKG shows sinus tachycardia at 102 with normal axis, T-wave flattening V1 V2, no STEMI, nondiagnostic HPI - General Adult General Mode of arrival: ambulatory . Date/Time Provider Initiated Documentation: 05/01/18 15:55 . Limitations to Documentation: no limitations . Information obtained by: patient, RN notes reviewed and old records reviewed . HPI Narrative: Alexis Ordoñez is a 33-year-old man with history of sleep apnea and no other medical problems presenting to the emergency department with cough and shortness of breath. Patient reports that he was seen on Wednesday for cough and mild shortness of breath. At that time he had a normal chest x-ray, but he was started on Augmentin for possible occult pneumonia. Patient reports that he has been taking his Augmentin as prescribed for the past 2 days, but feels that his shortness of breath and cough have been getting worse. He denies any pain. Denies fevers, vomiting, diarrhea, rash, lightheadedness, weakness. Patient reports that shortness of breath is worse with exertion. Has not had similar symptoms in the past. He denies travel in the past few months, denies other recent illnesses. He reports normal appetite. Related Data Home Medications Medication Instructions Recorded Confirmed ibuprofen 600 mg PO TID 05/01/18 05/01/18 albuterol sulfate 2 puff IH Q6H PRN #8 gm 05/03/18 guaifenesin [Mucinex] 600 mg PO BID #10 tab 05/03/18 levofloxacin 750 mg PO DAILY@1600 #5 tab 05/03/18 Previous Rx's Medication Instructions Recorded albuterol sulfate 2 puff IH Q6H PRN #8 gm 05/03/18 guaifenesin [Mucinex] 600 mg PO BID #10 tab 05/03/18 levofloxacin 750 mg PO DAILY@1600 #5 tab 05/03/18 Allergies Allergy/AdvReac Type Severity Reaction Status Date / Time No Known Drug Allergies Allergy Unverified 05/01/18 15:04 General Stated Complaint: SOB ILDA: 3 Review of Systems Review of Systems Constitutional: denies fevers Eyes: denies eye pain ENT: denies facial pain, dental pain, sore throat Cardiovascular: denies chest pain, edema Respiratory: reports SOB, cough GI: denies abdominal pain, vomiting, diarrhea : denies flank pain MSK: denies back pain, neck pain, arthralgias, myalgias Skin: denies rash Neuro: denies headaches, lightheadedness, weakness Exam Narrative Exam Narrative: Constitutional: well and [id number], pleasant HENT: head atraumatic, normocephalic normal inspection, mucous membranes moist Eyes: conjunctiva normal, sclera normal, pupils 3mm b/l Neck: no stridor, normal ROM, trachea midline Chest: normal inspection Resp: increased WOB, speaking in short sentences, b/l wheeze on ausculation without rales or rhonchi Cardio: tachycardia, normal rhythm, no murmur appreciated GI: abdomen soft, non-tender, non-distended Back: normal inspection, no rash Skin: warm, dry, normal color, no rash Neuro: alert, not altered, grossly non-focal, normal tone Ext: no edema Psych: normal mood, normal affect, normal behavior Course Vital Signs Temperature 37.7 C H 05/01/18 14:59 Pulse 111 H 05/01/18 14:59 Respiratory Rate 30 H 05/01/18 14:59 Pulse Oximetry 98 05/01/18 14:59 Temperature 37.7 C H 05/01/18 14:59 Pulse 108 H 05/01/18 15:26 Respiratory Rate 28 H 05/01/18 15:26 Blood Pressure 161/81 H 05/01/18 15:26 Pulse Oximetry 98 05/01/18 15:26
--- NOTE | 2018-05-02 12:59 | W.PM.PROGNOT ---
Date of service: 05/02/18 Time of Service: 12:59 Assessment and Plan (1) Pneumonia: Current visit: Yes Status: Acute Left lower lobe and right upper lobe according to chest x-ray on admission. No leukocytosis, has had intermittent fevers. Blood cultures currently pending. Was scheduled to start IV Levaquin this evening, however seems to have responded well to p.o. Levaquin and we will plan to continue this. Repeat CBC with differential and metabolic panel in the morning. As long as these are stable and blood cultures remain negative will plan to discharge home tomorrow. Treat fever with Tylenol and continue with neb nebulizer therapy and antitussive as needed. (2) DEVAN (obstructive sleep apnea): Current visit: Yes Status: Chronic Continue CPAP. (3) Obesity: Current visit: Yes Status: Chronic (4) DVT prophylaxis: Current visit: Yes Status: Acute SC Lovenox. Subjective Patient reports: no new complaints, feels better and tolerating a regular diet Interval history since last seen: Alexis is a pleasant 33-year-old gentleman with obesity, DEVAN on CPAP who presented to the emergency department yesterday with complaints of fever and cough as well as some pleuritic chest discomfort. Workup in the emergency room was significant for left lower lobe and right upper lobe consolidations on CT. He did have an elevated d-dimer, however no evidence of PE. WBCs and lactate normal. Was given p.o. Levaquin in the emergency department and admitted to the hospitalist service for further management. This morning he is sitting up in the recliner watching television. Reports feeling significantly improved compared to last night. He is no longer short of breath and is having less pleuritic chest discomfort. Is tolerating p.o. intake. Exam Narrative Exam Narrative: General: 33yo male, obese. Well developed and well nourished. No acute distress. A/Ox3. Pleasant and cooperative. HEENT: Normocephalic, Atraumatic. Conjunctiva clear, sclera non-icteric. PERRL. EOMI. Moist mucous membranes, oropharynx clear. Neck supple, no JVD, thyromegaly or lymphadenopathy. Cardiovascular: Regular rate and rhythm, S1S2, no S3 or S4. No murmur, rub, gallop. Respiratory: Chest expansion symmetrical, respirations unlabored. Lungs clear to auscultation, no adventitious breath sounds. Lung sounds somewhat diminished bilateral lower lobes GI: Abdomen round, soft, non-tender to palpation. Normoactive bowel sounds in all 4 quadrants. No hepatosplenomegaly or prominent masses. : deferred Extremities: Lower extremities without deformity or edema Neurological: non-focal. CN 2-12 grossly intact. Psychiatric: pleasant and cooperative. Speech clear and articulate. Mood and affect normal. Objective Objective Clinical Data: Abnormal lab results 05/01/18 05/01/18 05/01/18 Range/Units 16:20 16:20 16:20 Hgb (13.5-17.5) g/dL Hct (40.0-50.0) % RDW 14.7 H (11.8-14.1) % Absolute Neutrophils 6.94 H (1.2-6.7) k/cumm Absolute Lymphocytes 1.15 L (1.2-3.4) k/cumm Absolute Monocytes 0.74 H (0.11-0.7) k/cumm D-Dimer 1721 H (<500) ng/mlFEU VBG O2 Saturation (70-80) % Glucose 112 H (70-100) mg/dL Calcium 8.4 L (8.5-10.1) mg/dL Total Bilirubin 1.2 H (0.2-1.0) mg/dL Albumin 3.0 L (3.4-5.0) g/dL 05/01/18 05/02/18 05/02/18 Range/Units 21:03 06:20 06:20 Hgb 12.9 L (13.5-17.5) g/dL Hct 39.0 L (40.0-50.0) % RDW 14.9 H (11.8-14.1) % Absolute Neutrophils 7.46 H (1.2-6.7) k/cumm Absolute Lymphocytes (1.2-3.4) k/cumm Absolute Monocytes 0.83 H (0.11-0.7) k/cumm D-Dimer (<500) ng/mlFEU VBG O2 Saturation 68 L (70-80) % Glucose (70-100) mg/dL Calcium 8.1 L (8.5-10.1) mg/dL Total Bilirubin (0.2-1.0) mg/dL Albumin (3.4-5.0) g/dL Vital Signs Temp 38 C H 05/02/18 09:29 Pulse 98 H 05/02/18 09:29 Resp 20 05/02/18 09:29 BP 120/62 18 09:29 Pulse Ox 96 05/02/18 09:29 Intake & Output 05/01/18 05/02/18 05/02/18 23:59 11:59 23:59 Intake Total 1500 / 1500 3590 / 3590 Output Total 3500 / 3500 Balance 1500 / 1500 90 / 90 Intake: IV 1000 / 1000 1850 / 1850 Oral 500 / 500 1740 / 1740 Output: Urine 3500 / 3500 Other: Urine Color Yellow Urine Appearance Clear Voiding Methods Urinal Laboratory Results WBC 9.86 k/cumm (4.4-10.8) 05/02/18 06:20 RBC 4.55 m/cumm (4.50-6.00) 05/02/18 06:20 Hgb 12.9 g/dL (13.5-17.5) L 05/02/18 06:20 Hct 39.0 % (40.0-50.0) L 05/02/18 06:20 MCV 85.7 fL (80-95) 05/02/18 06:20 MCH 28.4 pg (27.0-33.0) 05/02/18 06:20 MCHC 33.1 g/dL (32.0-36.0) 05/02/18 06:20 RDW 14.9 % (11.8-14.1) H 05/02/18 06:20 Plt Count 181 x1000/uL (130-400) 05/02/18 06:20 MPV 9.6 fL (8.0-11.0) 05/02/18 06:20 Immature Gran % 0.8 05/02/18 06:20 Neutrophils % 75.7 05/02/18 06:20 Lymphocytes % 12.8 05/02/18 06:20 Monocytes % 8.4 05/02/18 06:20 Eosinophils % 2.0 05/02/18 06:20 Basophils % 0.3 05/02/18 06:20 Absolute Neutrophils 7.46 k/cumm (1.2-6.7) H 05/02/18 06:20 Absolute Lymphocytes 1.26 k/cumm (1.2-3.4) 05/02/18 06:20 Absolute Monocytes 0.83 k/cumm (0.11-0.7) H 05/02/18 06:20 Absolute Eosinophils 0.20 k/cumm (0.0-0.7) 05/02/18 06:20 Absolute Basophils 0.03 k/cumm (0.0-0.2) 05/02/18 06:20 D-Dimer 1721 ng/mlFEU (<500) H 05/01/18 16:20 VBG pH 7.41 (7.32-7.43) 05/01/18 21:03 VBG pCO2 42 mm/Hg (34-47) 05/01/18 21:03 VBG pO2 34 mm/Hg (28-44) 05/01/18 21:03 VBG HCO3 26 mmol/L (22-28) 05/01/18 21:03 VBG Total CO2 24 mmol/L (22-29) 05/01/18 21:03 VBG O2 Saturation 68 % (70-80) L 05/01/18 21:03 VBG Base Excess 1.6 mmol/L (-3-3) 05/01/18 21:03 Sodium 139 mmol/L (136-145) 05/02/18 06:20 Potassium 4.1 mmol/L (3.5-5.1) 05/02/18 06:20 Chloride 104 mmol/L (98-107) 05/02/18 06:20 Carbon Dioxide 27.0 mmol/L (21.0-32.0) 05/02/18 06:20 Anion Gap 8.0 mmol/L (3-11) 05/02/18 06:20 BUN 10 mg/dL (7-18) 05/02/18 06:20 Creatinine 0.97 mg/dL (0.70-1.30) 05/02/18 06:20 Estimated GFR/1.73 m2 >= 60.00 (mL/min/1.73m2) 05/02/18 06:20 Glucose 96 mg/dL (70-100) 05/02/18 06:20 Lactate 1.0 mmol/L (0.6-1.4) 05/01/18 21:03 Calcium 8.1 mg/dL (8.5-10.1) L 05/02/18 06:20 Total Bilirubin 1.2 mg/dL (0.2-1.0) H 05/01/18 16:20 AST 30 U/L (15-37) 05/01/18 16:20 ALT 63 U/L (12-78) 05/01/18 16:20 Alkaline Phosphatase 64 U/L (46-116) 05/01/18 16:20 Total Protein 7.5 g/dL (6.4-8.2) 05/01/18 16:20 Albumin 3.0 g/dL (3.4-5.0) L 05/01/18 16:20
--- NOTE | 2018-05-02 15:21 | CHAPLAIN ---
Alexis was up walking around his room when I stopped in. He was pleasant, but not interested in further conversation.
[2018-05-02] MEDS: LEVOFLOXACIN 500 MG, LEVOFLOXACIN 250 MG 750 MG PO (17:36)
[2018-05-02] MEDS: Enoxaparin 40 MG/0.4 ML SYR SC (21:28)
[2018-05-03 07:15] LABS: Abs Immature Grans 0.12 k/cumm (0.0-0.09); Absolute Basophil Count 0.03 k/cumm (0.0-0.2); Absolute Eosinophil Count 0.61 k/cumm (0.0-0.7); Absolute Lymphocyte Count 1.46 k/cumm (1.2-3.4); Absolute Monocyte Count 0.75 k/cumm (0.11-0.7); Absolute Neutrophil Count 5.23 k/cumm (1.2-6.7); Basophils % 0.4; Eosinophils % 7.4; HCT 39.3 % (40.0-50.0); HGB 12.9 g/dL (13.5-17.5); Immature Grans % 1.5; Lymphocytes % 17.8; Mean Corp. HGB Concentration 32.8 g/dL (32.0-36.0); Mean Corpuscular Hemoglobin 28.1 pg (27.0-33.0); Mean Corpuscular Volume 85.6 fL (80-95); Mean Platelet Volume 9.4 fL (8.0-11.0); Monocytes % 9.1; Neutrophils % 63.8; Platelet Count 183 x1000/uL (130-400); RBC 4.59 m/cumm (4.50-6.00); RBC Distribution Width 14.9 % (11.8-14.1)
[2018-05-03 07:16] VITALS: BP 122/79; PULSE 77; RESP 17; TEMP 37; O2SAT 97
[2018-05-03 07:20] LABS: Anion Gap 8.4 mmol/L (3-11); BUN 14 mg/dL (7-18); CO2 28.6 mmol/L (21.0-32.0); CREATININE 0.91 mg/dL (0.70-1.30); Calcium 8.5 mg/dL (8.5-10.1); Chloride 104 mmol/L (98-107); Glucose 87 mg/dL (70-100); Potassium 4.4 mmol/L (3.5-5.1); Sodium 141 mmol/L (136-145)
[2018-05-03 07:59] VITALS: TEMP 37
[2018-05-03] MEDS: Ibuprofen 600 MG TAB PO (07:59)
[2018-05-03] MEDS: Benzonatate 100 MG CAP PO (07:59)
[2018-05-03] MEDS: guaiFENesin 600 MG TABCR PO (08:00)
--- NOTE | 2018-05-03 10:00 | PDOC.CMDIS ---
- If Service Date Differs Date of service: 05/03/18 Time of Service: 10:01 LACE Index Scoring Tool - Questions: Length of Stay (in days): 3 Acuity (Admit via E.D.?): Yes E.D. Visits: 3 - Answers: Total Score: 9 Risk of Readmission: Low Risk Care Management Discharge Reason for Hospitalization: Pneumonia Discharge Plan: Alexis will return home with no services. He will F/U with PCP and plan of care as prescribed. Alexis's family will transport. Patient/Family Education Needs: Review DC instructions, any limitations, and discuss Ask Me Three
--- NOTE | 2018-05-03 11:35 | DSE_ITS ---
Date of service: 05/03/18 Time of Service: 11:33 DS: Diagnosis Discharge Diagnosis (1) Pneumonia: Status: Acute (2) DEVAN (obstructive sleep apnea): Status: Chronic (3) Obesity: Status: Chronic (4) DVT prophylaxis: Status: Acute Discharge Plan Disposition Patient Disposition: HOME Condition: Good Discharge Details Chief Complaint: SOB Reason For Visit: PNEUMONIA Admit Date/Time: 05/01/18 20:54 Admit Provider: Tomas Kathleen Attending Provider: Tomas Kathleen Primary Care Provider: Nena Frank ED [facility] Hospital Course: Alexis is a Very Pleasant 33 year old man with past medical history significant for Obesity and DEVAN, who presented to [facility] emergency department on 05/01/18 with complaints of fever and cough. Mr. Ordoñez reported onset of fatigue approximately one week prior to his presentation, followed by subjective fever, malaise, and dyspnea. He then had onset of a cough, described as unproductive, 2 days prior to this admission, which prompted a visit to the emergency room. His chest x-ray was negative at that time, and the patient was started on Augmentin and discharged. Despite antibiotic use the patient continued to have worsening fever, dyspnea, cough, and onset of nausea and vomiting. He presented again to the ED and was admitted at that time. Work-up in the emergency room was significant for appearance of LLL and RUL consolidations by CT. The patient's WBC was normal, as was his lactate and kidney function. His pulse ox was well within normal limits, and his blood pressure was normotensive. The patient was referred for admission due to ongoing sinus tachycardia despite fluid resuscitation. Over the following days his symptoms improved. By the day of discharge he is no longer short of breath, he denies wheezing (although he continues to have expiratory wheezing on auscultation), he is eating and drinking and tolerating his diet well. He is eager for discharge home. He will be discharged home and will need to continue a course of oral antibiotics. Given that he continues to wheeze, will provide him with a prescription for albuterol inhaler to be used as needed. On the day of discharge, he is afebrile, normotensive, he is no longer tachycardic, his oxygen saturation is 97% on room air. He has no leukocytosis, kidney funciton is normal, his blood cultures have yielded no growth in 24 hours. He will follow up with his PCP as scheduled. Home Meds and New Rx's Prescriptions: New guaifenesin [Mucinex] 600 mg Tablet Extended Release 12hr 600 mg PO BID Qty: 10 RF: 0 levofloxacin 750 mg tablet 750 mg PO DAILY@1600 Qty: 5 RF: 0 albuterol sulfate 90 mcg/actuation HFA aerosol inhaler 2 puff IH Q6H PRN (Reason: wheezing) Qty: 8 RF: 0 Continue ibuprofen 600 mg Tablet 600 mg PO TID RF: 0 Discontinued amoxicillin-pot clavulanate 875-125 mg tablet 1 tab PO BID 10 Days Qty: 20 RF: 0 Discharge Instructions Instructions: Community Acquired Pneumonia (DC) Additional Instructions: Take your antibiotics until they are gone (Levaquin). You may use albuterol inhaler for wheezing or shortness of breath, only use as needed. Follow up with your PCP as scheduled. ~This case was discussed with Dr. Kilpatrick who is in agreement~ Stand Alone Forms: Nursing Discharge Form Referrals: Nena Frank [Primary Care Provider] - 05/19/18 9:25 am Activity:: Activity as Tolerated Equipment/Supplies:: No Equipment Needed Diet:: As tolerated. Discharge Orders Discharge Orders: Discharge Order (Routine); Ordered 05/03/18 Ordered By: Brianna Rodriguez DS: Data Vitals/I&O Vitals and I&O: Vital Signs Temp 37.0 C 05/03/18 07:59 Pulse 77 05/03/18 07:16 Resp 17 05/03/18 07:16 BP 122/79 05/03/18 07:16 Pulse Ox 97 05/03/18 07:16 Intake & Output 05/02/18 05/02/18 05/03/18 11:59 23:59 11:59 Intake Total 4190 / 4190 2342.0 / 2342.0 1040 / 1040 Output Total 3500 / 3500 5000 / 5000 3150 / 3150 Balance 690 / 690 -2658.0 / -2658.0 -2110 / -2110 Weight 71.214 kg Intake: IV 1850 / 1850 1612.0 / 1612.0 Oral 2340 / 2340 730 / 730 1040 / 1040 Output: Urine 3500 / 3500 5000 / 5000 3150 / 3150 Other: Urine Color Yellow Yellow Pale Urine Appearance Clear Clear Clear Urine Odor None Comment pt voided x 2. 750 each time. Voiding Methods Urinal Toilet Toilet Urinal Completed studies during hospitalization [Text1]: CHEST CT 05/02/18: IMPRESSION: No evidence of a pulmonary embolus, thoracic aortic dissection or aneurysm. Bilateral pulmonary infiltrates consistent with a pneumonia. Hepatomegaly with hepatic steatosis. Chest X-Ray 05/02/18: IMPRESSION: Worsening bilateral pulmonary infiltrates consistent with pneumonia. SPUTUM culture 05/02/18: Normal ama BLOOD cultures 05/01/18: NO GROWTH 24 HOURS Labs on day of discharge: Labs from last 24 hours 05/03/18 05/03/18 06:54 06:54 WBC 8.20 RBC 4.59 Hgb 12.9 L Hct 39.3 L MCV 85.6 MCH 28.1 MCHC 32.8 RDW 14.9 H Plt Count 183 MPV 9.4 Immature Gran % 1.5 Neutrophils % 63.8 Lymphocytes % 17.8 Monocytes % 9.1 Eosinophils % 7.4 Basophils % 0.4 Absolute Neutrophils 5.23 Absolute Lymphocytes 1.46 Absolute Monocytes 0.75 H Absolute Eosinophils 0.61 Absolute Basophils 0.03 Sodium 141 Potassium 4.4 Chloride 104 Carbon Dioxide 28.6 Anion Gap 8.4 BUN 14 Creatinine 0.91 Estimated GFR/1.73 m2 >= 60.00 Glucose 87 Calcium 8.5 Preliminary micro results at discharge 05/02/18 03:56 Sputum Culture - Preliminary Sputum Normal Ama 05/01/18 20:10 Blood Culture - Preliminary Blood NO GROWTH 24 HOURS 05/01/18 18:35 Blood Culture - Preliminary Blood NO GROWTH 24 HOURS
[2018-05-03 11:57] VITALS: TEMP 36.5
== END 2018-05-03 13:56 | disposition home or self-care (01) ==
LOC: ER 21:29 → MS 21:48
PROVIDERS: Nurse Practitioner Primary Care; Admitting Provider Internal Medicine; Emergency Provider Student in an Organized Health Care Education/Training Program; Visit Provider Student in an Organized Health Care Education/Training Program
DX: J18.1 Lobar pneumonia, unspecified organism (principal); G47.33 Obstructive sleep apnea (adult) (pediatric); E66.9 Obesity, unspecified
CPT/HCPCS: 36415; 71275; 80048; 80053; 82805; 87040; 93005; 94640; 96360; 96361; 99219; 99233; 99239; 99285; J1650; 71046; 83605; 85025; 85379; 87070; 87205; 93010; 94660; 99217; 99226; G0378; J3490; J7620

== ENCOUNTER 2018-05-19 10:51 | Outpatient (REF) | payer OTHER, SELFPAY ==
[2018-05-20 12:15] LABS: HBs Antibody, Qual Negative; HBs Antibody, Quant <3.1 mIU/mL; Hepatitis B Core Antibody Negative (NEGAT); Hepatitis B surface Ag Negative (NEGAT); Hepatitis C Ab w Rflx HCV PCR Negative (NEGAT)
== END 2018-05-19 11:11 ==
LOC: NCHCN 10:51
PROVIDERS: PCP Nurse Practitioner; Visit Provider Nurse Practitioner
DX: K76.0 Fatty (change of) liver, not elsewhere classified (principal)
CPT/HCPCS: 86704; 86706; 86803; 87340

== ENCOUNTER 2018-05-23 00:39 | Outpatient (CLI) | payer SELFPAY ==
--- NOTE | 2018-05-23 07:51 | DI.US_ITS ---
SYMPTOM/DIAGNOSIS: LIVER STEATOSIS, K76.[address] ABDOMEN ULTRASOUND: Routine examination was performed. The study is limited due to patient body habitus. The aorta and IVC are unremarkable. The liver is enlarged measuring almost 23 cm. There is diffuse increased echogenicity consistent with hepatic steatosis. No hepatic mass is seen. There is normal flow through the portal vein. The gallbladder is negative. There is a negative sonographic Hernandez's sign. No stones or sludge are seen. The gallbladder wall is within normal limits. The common duct is within normal limits at .4 cm. Portions of the body and tail of the pancreas cannot be seen. The visualized portions of the pancreas are unremarkable. The spleen is enlarged at almost 15 cm. but otherwise unremarkable. The kidneys are unremarkable. IMPRESSION: Hepatosplenomegaly. Hepatic steatosis.
== END 2018-05-23 00:59 ==
PROVIDERS: PCP Nurse Practitioner; Visit Provider Nurse Practitioner
DX: K76.0 Fatty (change of) liver, not elsewhere classified (principal); R16.2 Hepatomegaly with splenomegaly, not elsewhere classified
CPT/HCPCS: 76700

== ENCOUNTER 2018-05-23 09:10 | Outpatient (CLI) | payer OTHER, SELFPAY ==
--- NOTE | 2018-05-23 08:00 | SATEXT_ITS ---
Assessment: Alexis presents for nutritional counseling for weight management. He reports that he has found out that he has fatty deposits on his liver. He describes a history of steady weight gain since high school. 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 His dietary recall shows that he eats 3 slices of stevens, 4 eggs, 2 cups of coffee, and v-8 fruit and vegetable blend juice for breakfast. He brings 2 granola bars, a 32 oz. Gatorade, and a 1/2 gallon of water to work for his break, and then his third meal he has chicken or steak, whole milk and vegetables. In the evening, he may have 1.5 cups of ice cream. He also reports that occasionally, he will come home from work and eat sweets as he feels fatigued. He drinks ETOH twice per month at the most. Other than work, Alexis reports that he is not doing any other deliberate physical activity. He is 74 [address] scale today. Nutritional Diagnosis: Class 3 obesity related to excess energy intake and physical inactivity as evidenced by BMI of 47.3 kg/m2 Intervention: We discussed several areas of weight management including the DASH eating plan and increasing physical activity. I also explained that weight loss and increased physical activity will help his RODRIGUEZ. With regard to drinking any ETOH, I deferred that answer to his health care provider. We discussed ways that he could tweak his current eating habits to be more consistent with the DASH eating plan. Suggested he focus primarily on getting 11 vegetables and fruit in his diet daily and the other parts will fall into place. Suggested that he increase his midday meal so that he does not come home from work so hungry when he has a tendency to eat sweets. Suggested bringing fruits, nuts, and vegetables to work and possibly a serving of whole grains etc. Also suggested eliminating all sugar sweetened beverages. With regard to physical activity, encouraged Alexis to start with 15 minutes of walking or doing weights in the gym at work before he even leaves work as he mentions, like many of us, he is not motivated once he gets home. We talked about the usefulness of action plans in helping meet goals. Alexis made two action plans for the next few weeks: He is going to clean out his refrigerator and he is going to buy his groceries using a list. Monitoring and Evaluation: 1. Will monitor progress on actions plans and weight. 2. Will evaluate nutrition care plan and adjust as needed. Thank you for the referral.
== END 2018-05-23 09:30 ==
PROVIDERS: PCP Nurse Practitioner; Visit Provider Dietitian, Registered
DX: E66.8 Other obesity (principal); Z68.42 Body mass index [BMI] 45.0-49.9, adult; Z71.3 Dietary counseling and surveillance
CPT/HCPCS: 97802

== ENCOUNTER 2018-06-20 11:10 | Outpatient (CLI) | payer OTHER, SELFPAY ==
--- NOTE | 2018-06-20 14:00 | NS.NUTBLAN_ITS ---
Alexis returns for follow up nutritional counseling for weight management. He reports that he has made some significant changes. He is has changed to 2% milk from whole milk. His breakfast is 2 scrambled eggs with veggies and a zuniga smoothie. Lunch is a 1/2 cup of pasta and veggies and fruit. Dinner is meat and vegetables. He is drinking mostly water and has green tea and coffee as well. With regard to physical activity, Alexis has started moving more within his work day. His weight today is 333 lbs which is down 15 lbs from less than a month ago. He is 74. His BMI is now 45.2 kg/m2. Alexis will return for continued follow up in one month. He plans to continue with his current eating habits and plans to increase his physical activity as much as possible. Will continue to monitor his weight and PO intake. Will evaluate his nutrition care plan and adjust as needed.
== END 2018-06-20 11:30 ==
PROVIDERS: PCP Nurse Practitioner; Visit Provider Dietitian, Registered
DX: E66.8 Other obesity (principal); Z68.42 Body mass index [BMI] 45.0-49.9, adult; Z71.3 Dietary counseling and surveillance
CPT/HCPCS: 97803

== ENCOUNTER 2018-08-22 01:06 | Outpatient (CLI) | payer OTHER, SELFPAY ==
--- NOTE | 2018-08-22 14:58 | W.NUTRFU ---
Date of service: 08/22/18 Time of Service: 14:00 Nutritional Follow up NOTE: Alexis returns for follow up weight management nutrition therapy. He reports that he has gotten back on track since the holiday. He states he did fairly well over the holiday season, but may have gained a few pounds. He also states he was not as physically active as he had been. Currently, he is back to eating his usual diet of eggs and a zuniga smoothie and a whole wheat Occitan muffin with peanut butter for breakfast. He eats fruits, vegetables, and almonds for lunch and he eats veggies and protein at supper. He has started walking again for 30 minutes per session. He states his goal is to walk 3 days per week at least. His weight today was up 3 pounds to 336 lbs. He has still maintained a 12 pound loss since May of 2018. Acknowledged his hard work and effort and encouraged him to keep right on track as he intended. He is 74. His BMI is 45.6 kg/m2 consistent with class 3 obesity. Alexis would like to continue his weight management program at home with self monitoring. He will evaluate in 6 months whether his progress is sufficient and whether or not he will return for follow up. He has my contact information for any questions or concerns regarding his nutiriton therapy. Time Spent in Nutritional Counseling and Treatment: 20 minutes
== END 2018-08-22 01:26 ==
PROVIDERS: PCP Nurse Practitioner; Visit Provider Dietitian, Registered
DX: E66.8 Other obesity (principal); Z68.42 Body mass index [BMI] 45.0-49.9, adult; Z71.3 Dietary counseling and surveillance
CPT/HCPCS: 97803

== ENCOUNTER 2018-08-29 02:45 | Outpatient (CLI) | payer OTHER, SELFPAY ==
--- NOTE | 2018-08-29 | PFT_ITS ---
PULMONARY FUNCTION TEST REPORT Patient identification - Alexis Ordoñez DATE OF - 89 DATE OF SERVICE - August 29, 2018 REQUESTING PROVIDER - Nena Frank N.P. INTERPRETATION OF STUDY Spirometry shows no evidence of obstructive airways disease. No bronchodilator response. LUNG VOLUMES - Lung volumes show no evidence of restriction. DIFFUSION CAPACITY- Elevated. AIRWAY RESISTANCE - Normal. IMPRESSION Isolated elevated diffusion capacity. This constellation of findings can be seen in asthma. If the diagnosis of asthma is in question, especially cough-variant asthma, proceeding with methacholine challenge testing may prove to be useful. Clinical correlation recommended. Thuy Tripathi M.D. YULI/callie T - 08/31/2018
[2018-08-29] MEDS: Albuterol HFA 18 GM 200 PUFF INH IH (11:01)
[2018-08-29] MEDS: Inhaler, Assist Device 1 EACH MC (11:01)
== END 2018-08-29 03:05 ==
PROVIDERS: PCP Nurse Practitioner; Visit Provider Nurse Practitioner
DX: R05 Cough (principal); R06.2 Wheezing
CPT/HCPCS: 94060; 94150; 94726; 94729

== ENCOUNTER 2021-04-24 22:06 | Outpatient (CLI) | payer OTHER, SELFPAY ==
--- NOTE | 2021-04-24 14:45 | DI.RAD_ITS ---
Exam(s) XR KNEE RT 3V AP,LAT,ANITA EXAM: XR KNEE RT 3V AP,LAT,ANITA CLINICAL HISTORY: RT KNEE PAIN, M25.561, S/P fall onto knees. TECHNIQUE: 2D digital imaging was performed. COMPARISON: No exams were available for comparison FINDINGS: BONES: No acute fracture is present. No bony destructive lesion is seen. JOINTS: The knee is normally aligned. No joint effusion is seen. Minimal periarticular spurring. Sarita int space is well maintained. SOFT TISSUE: Mild anterior soft tissue swelling. IMPRESSION: Mild anterior soft tissue swelling. DATA REPOSITORY: RADIATION DOSE DELIVERED:
--- NOTE | 2021-04-24 14:45 | DI.RAD_ITS ---
Exam(s) XR KNEE LT 3V AP,LAT,ANITA EXAM: XR KNEE LT 3V AP,LAT,ANITA CLINICAL HISTORY: LT KNEE PAIN, M25.562, S/P fall onto both knees. TECHNIQUE: 2D digital imaging was performed. COMPARISON: CR XR KNEE RT 3V AP,LAT,ANITA from 04/24/2021 FINDINGS: BONES: No acute fracture is present. No bony destructive lesion is seen. There is spurring at the lower pole of the patella at the patellar tendon origin. JOINTS: The knee is normally aligned. No joint effusion is seen. There is minimal periarticular spu rring. SOFT TISSUE: Normal. IMPRESSION: Mild degenerative changes. No acute abnormality. DATA REPOSITORY: RADIATION DOSE DELIVERED:
== END 2021-04-24 22:26 ==
PROVIDERS: PCP Nurse Practitioner; Visit Provider Nurse Practitioner Family
DX: M25.561 Pain in right knee (principal); M25.562 Pain in left knee; R22.41 Localized swelling, mass and lump, right lower limb
CPT/HCPCS: 73562

== ENCOUNTER 2021-08-26 17:36 | Outpatient (REF) | payer OTHER, SELFPAY ==
[2021-08-26 15:42] LABS: HCT 47.4 % (40.0-50.0); HGB 15.6 g/dL (13.5-17.5); MCH 28.4 pg (27.0-33.0); MCHC 32.9 % (32.0-36.0); MCV 86.2 fL (80-95); MPV 10.5 fL (8.0-11.0); Platelet Count 184 10^3/uL (130-400); RDW 13.5 % (11.8-14.1); RDW-SD 42.8 fL; WBC 8.92 10^3/uL (4.4-10.8)
[2021-08-26 15:48] LABS: ALT 79 U/L (16-63); AST 39 U/L (15-37); Albumin 3.9 g/dL (3.4-5.0); Alkaline Phosphatase 69 U/L (46-116); BUN 14 mg/dL (7-18); Bilirubin, Total 0.6 mg/dL (0.2-1.0); CREATININE 1.1 mg/dL (0.70-1.30); Calcium 8.8 mg/dL (8.5-10.1); Chloride 106 mmol/L (98-107); Glucose 115 mg/dL (74-106); Potassium 4.1 mmol/L (3.5-5.1); Sodium 143 mmol/L (136-145)
[2021-08-27 11:00] LABS: Hepatitis C Ab w Rflx HCV PCR Negative (Negative)
[2021-08-28 00:24] LABS: Vitamin D 25 Total 33.9 ng/mL (30-100)
== END 2021-08-26 17:37 | disposition home or self-care (01) ==
LOC: NCHCN 17:36
PROVIDERS: PCP Nurse Practitioner; Visit Provider Nurse Practitioner Family
DX: K75.81 Nonalcoholic steatohepatitis (NASH) (principal); D64.9 Anemia, unspecified; F41.8 Other specified anxiety disorders; Z11.59 Encounter for screening for other viral diseases
CPT/HCPCS: 80053; 82306; 85027; 86803

== ENCOUNTER 2023-09-29 18:16 | Outpatient (REF) | payer OTHER, SELFPAY ==
[2023-09-29 21:10] LABS: HCT 47.1 % (40.0-50.0); HGB 15.7 g/dL (13.5-17.5); MCH 28.9 pg (27.0-33.0); MCHC 33.3 % (32.0-36.0); MCV 87 fL (80-95); MPV 10.5 fL (8.0-11.0); Platelet Count 231 10^3/uL (130-400); RBC 5.43 10^6/uL (4.36-5.78); RDW 14.4 % (11.8-14.1); RDW-SD 45.1 fL; WBC 10.45 10^3/uL (4.4-10.8)
[2023-09-29 21:35] LABS: Hemoglobin A1C 6.7 % (<5.7)
[2023-09-29 21:36] LABS: ALT 71 U/L (16-63); AST 33 U/L (15-37); Albumin 3.7 g/dL (3.4-5.0); Alkaline Phosphatase 79 U/L (46-116); Anion Gap 9.2 mmol/L (3-11); BUN 11 mg/dL (7-18); Bilirubin, Total 0.8 mg/dL (0.2-1.0); CO2 28.8 mmol/L (21.0-32.0); CREATININE 1.1 mg/dL (0.70-1.30); Calcium 9.4 mg/dL (8.5-10.1); Calculated LDL 69 mg/dL (<100); Chloride 107 mmol/L (98-107); Cholesterol 146 mg/dL (<200); Estimated GFR 89.22 (mL/min/1.73m2); Glucose 94 mg/dL (74-106); HDL Cholesterol 39 mg/dL (40-60); Potassium 4.5 mmol/L (3.5-5.1); Sodium 145 mmol/L (136-145); TSH (W/Ref FT4) 1.04 uIU/mL (0.36-3.74); Total Protein 7.1 g/dL (6.4-8.2); Triglyceride 190 mg/dL (<150)
== END 2023-09-29 18:17 | disposition home or self-care (01) ==
LOC: NCHCN 18:16
PROVIDERS: PCP Nurse Practitioner Family; Referring Provider Nurse Practitioner Family; Visit Provider Nurse Practitioner Family
DX: Z00.00 Encounter for general adult medical examination without abnormal findings (principal); Z13.220 Encounter for screening for lipoid disorders; Z13.29 Encounter for screening for other suspected endocrine disorder; Z13.1 Encounter for screening for diabetes mellitus; Z13.0 Encounter for screening for diseases of the blood and blood-forming organs and certain disorders involving the immune mechanism
CPT/HCPCS: 80053; 80061; 85027; 83036; 84443

== ENCOUNTER 2025-07-05 15:50 | Outpatient (REF) | payer OTHER, SELFPAY ==
[2025-07-05 20:30] LABS: HCT 46.9 % (40.0-50.0); HGB 15.5 g/dL (13.5-17.5); MCH 28.5 pg (27.0-33.0); MCHC 33.0 % (32.0-36.0); MCV 86 fL (80-95); MPV 10.8 fL (8.0-11.0); Platelet Count 218 10^3/uL (130-400); RBC 5.43 10^6/uL (4.36-5.78); RDW 14.4 % (11.8-14.1); RDW-SD 45.1 fL; WBC 10.07 10^3/uL (4.4-10.8)
[2025-07-05 20:45] LABS: ALT 34 U/L (10-49); AST 26 U/L (<34); Albumin 4.3 g/dL (3.4-5.0); Alkaline Phosphatase 63 U/L (46-116); Anion Gap 10.3 mmol/L (3-11); BUN 18 mg/dL (9-23); Bilirubin, Total 0.50 mg/dL (0.2-1.2); CO2 29.7 mmol/L (20.0-31.0); Calcium 9.2 mg/dL (8.3-10.6); Chloride 105 mmol/L (98-107); Glucose 79 mg/dL (74-106); Potassium 4.5 mmol/L (3.5-5.1); Sodium 145 mmol/L (136-145); Total Protein 6.7 g/dL (5.7-8.2)
== END 2025-07-05 15:51 | disposition home or self-care (01) ==
LOC: NCHCN 15:50
PROVIDERS: PCP Nurse Practitioner Family; Visit Provider Nurse Practitioner Family
DX: Z00.00 Encounter for general adult medical examination without abnormal findings (principal)
CPT/HCPCS: 80053; 85027